=== PATIENT | female | born 1990 | race African-American/Black ===

== ENCOUNTER 2018-12-23 19:45 | Emergency (ER) | payer OTHER ==
[~2018-12-23] VITALS: Ht 157.5 cm; Wt 54.4 kg
[2018-12-23 20:06] VITALS: BP 111/77
== END 2018-12-24 01:25 | disposition home or self-care (01) ==
LOC: ER 19:51
DX: S92.352A Displaced fracture of fifth metatarsal bone, left foot, initial encounter for closed fracture (principal); W18.39XA Other fall on same level, initial encounter; Y93.89 Activity, other specified; Y99.8 Other external cause status; Y92.89 Other specified places as the place of occurrence of the external cause
CPT/HCPCS: 29515; 73610; 73630